=== PATIENT | female | born 1975 | race Caucasian/White ===

== ENCOUNTER 2019-07-14 22:40 | Emergency (ER) | payer MEDICAID ==
[~2019-07-14] VITALS: Ht 165.1 cm; Wt 53.0 kg
[~2019-07-14 22:40] MED LIST: CEPH500T PO; CLON0.1T2 PO; HYDR-4383 PO; NO HOME MEDS
[2019-07-14 22:45] VITALS: BP 147/58
[2019-07-14] MEDS ORDERED: CefTRIAXone 250MG IM Kit w/LIDOcaine IM ONE (23:10)
[2019-07-14] MEDS ORDERED: azithromycin 250mg tablet PO ONE (23:10)
[2019-07-14] MEDS ORDERED: metroNIDAZOLE 500mg tablet PO ONE (23:10)
== END 2019-07-15 00:06 | disposition home or self-care (01) ==
LOC: ER 22:41
DX: Z11.3 Encounter for screening for infections with a predominantly sexual mode of transmission (principal); N89.8 Other specified noninflammatory disorders of vagina; F15.90 Other stimulant use, unspecified, uncomplicated; F17.200 Nicotine dependence, unspecified, uncomplicated; Z98.890 Other specified postprocedural states; Z79.2 Long term (current) use of antibiotics; Z79.899 Other long term (current) drug therapy
CPT/HCPCS: 36415; 87491; 87591; 93005; 96372; 99284; J0696; 99283; J3490

== ENCOUNTER 2022-02-07 09:58 | Emergency (ER) | payer MEDICAID ==
[~2022-02-07] VITALS: Ht 165.1 cm; Wt 56.8 kg
[2022-02-07 10:11] VITALS: BP 137/89
[2022-02-07] MEDS ORDERED: ketorolac tromethamine 15mg/ml inj. IM ONE (12:30)
[2022-02-07] MEDS ORDERED: ketorolac trometh inj. 60 MG/2 ML VIAL IM ONE (12:35)
[2022-02-07] MEDS ORDERED: IBUP-1986 PO (13:22)
[2022-02-07] MEDS ORDERED: CYCL-1 PO (13:23)
== END 2022-02-07 13:38 | disposition home or self-care (01) ==
LOC: ER 09:59
DX: S50.11XA Contusion of right forearm, initial encounter (principal); F15.20 Other stimulant dependence, uncomplicated; Z98.890 Other specified postprocedural states; V43.62XA Car passenger injured in collision with other type car in traffic accident, initial encounter; Y92.89 Other specified places as the place of occurrence of the external cause; Y99.8 Other external cause status
CPT/HCPCS: 73060; 73090; 96372; 99284; J1885